=== PATIENT | female | born 1945 ===

== ENCOUNTER 2016-12-24 23:11 | Emergency (ER) | payer OTHER ==
[2016-12-24 23:11] VITALS: BMI 22.2
[2016-12-24 23:26] VITALS: TEMP 98.3; O2SAT 99
--- NOTE | 2016-12-24 23:40 | ED PDOC ---
HPI: Trauma/Fall - HPI Time Seen by Provider: 12/24/16 23:30 Chief Complaint (Nursing): Trauma Chief Complaint (Provider): fall History Per: Patient, Family History/Exam Limitations: no limitations Injury Occurred (Timing): Just Before Arrival Additional History Per: Patient, Family (friend) Additional Complaint(s): 71 y/o female brought in by EMS with friend for eval of fall prior to arrival. Patient states she was leaving [employer] and slipped on the wet side walk and fell on to knees, then face forward on to ground. As per friend, denies LOC. Patient with complaints of posterior headache, neck pain, left leg pain, and bruises/pain to both knees (L>R). Denies dizziness, nausea/vomiting, vision changes, extremity numbness/weakness, chest pain, shortness of breath, back pain , bowel/bladder incontinence. Past Medical History Reviewed: Historical Data, Nursing Documentation, Vital Signs Vital Signs: Last Vital Signs Temp 98.3 F 12/24/16 23:17 Pulse 100 H 12/24/16 23:17 Resp 18 12/24/16 23:17 BP 154/85 H 12/24/16 23:17 Pulse Ox 99 12/24/16 23:17 - Medical History PMH: Alzheimer's Disease, Depression, Gastritis, HTN Denies: Diabetes, Hepatitis, HIV, Seizures, Sexually Transmitted Disease - Family History Family History: States: Unknown Family Hx - Immunization History Hx Tetanus Toxoid Vaccination: Yes Hx Influenza Vaccination: Yes Hx Pneumococcal Vaccination: Yes - Home Medications Home Medications: Ambulatory Orders Medication Instructions Recorded Aspirin 325 mg PO DAILY 10/25/13 Omeprazole 40 mg PO DAILY 01/19/14 Tramadol Hydrochloride [Tramadol] 1 tab PO TID PRN #20 tab 01/19/14 Fenofibrate Nanocrystallized 145 mg PO DAILY 03/01/14 [Fenofibrate] Docusate Sodium [Dulcolax Stool 100 mg PO DAILY #10 capsule 06/04/16 Softener] Phosphate Enema [Fleet Enema 135 133 ml RC ONCE #1 nma 06/04/16 Ml] Famotidine [Pepcid] 20 mg PO BID #16 tab 10/11/16 - Allergies Allergies/Adverse Reactions: Allergies Allergy/AdvReac Type Severity Reaction Status Date / Time Penicillins Allergy Verified 06/03/16 22:06 Review of Systems ROS Statement: Except As Marked, All Systems Reviewed And Found Negative Musculoskeletal: Positive for: Neck Pain, Leg Pain Neurological: Positive for: Headache Physical Exam - Reviewed Nursing Documentation Reviewed: Yes Vital Signs Reviewed: Yes - Physical Exam Appears: Positive for: Well, Non-toxic, No Acute Distress Head Exam: Positive for: NORMAL INSPECTION, NORMOCEPHALIC. Negative for: ATRAUMATIC (left frontal abrasions) Eye Exam: Positive for: Normal appearance, EOMI, PERRL ENT: Positive for: Normal ENT Inspection, Other (abrasion to nasal bridge) Cardiovascular/Chest: Positive for: Regular Rate, Rhythm Respiratory: Positive for: Normal Breath Sounds Back: Positive for: Vertebral Tenderness (diffuse cspine; no bony deformity), Muscle Spasm (b/l cspine paraspinals). Negative for: L CVA Tenderness, R CVA Tenderness, Decreased ROM Extremity: Positive for: Normal ROM, Tenderness (left hip, left lateral thigh. No leg shortening, rotation noted. Contusions/abrasions b/l knee's, FROM.), Capillary Refill. Negative for: Calf Tenderness, Deformity Neurologic/Psych: Positive for: Alert, Oriented - ECG O2 Sat by Pulse Oximetry: 99 - Other Rad xray left hip/pelvis X-Ray: Interpreted by Me, Viewed By Me X-Ray Interpretation: no acute findings xray left femur X-Ray: Interpreted by Me, Viewed By Me X-Ray Interpretation: no acute findings xray b/l knees X-Ray: Interpreted by Me, Viewed By Me X-Ray Interpretation: no acute findings - Progress ED Course And Treament: Ct head, CT facial, CT cspine, xray left hip, xray left femur, xray b/l knees, Tylenol PO EXAM: CT Head Without Intravenous Contrast CLINICAL HISTORY: 71 years old, female; Injury or trauma; Fall; Initial encounter; Blunt trauma ( contusions or hematomas); Additional info: Fall, head injury TECHNIQUE: Axial computed tomography images of the head/brain without intravenous contrast. This CT exam was performed using one or more of the following dose reduction techniques: automated exposure control, adjustment of the mA and/or kV according to patient size, and/or use of iterative reconstruction technique. Coronal and sagittal reformatted images were created and reviewed. COMPARISON: CT HEAD OR BRAIN W/O CONT 01/20/2014 8:21:06 PM FINDINGS: Brain: Mild atrophy. No intracranial hemorrhage. No mass. 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 No edema. Ventricles: No hydrocephalus. Bones/joints: No acute fracture. Soft tissues: LEFT frontal soft tissue swelling. Vasculature: Mild atherosclerotic disease of intracranial arteries. Sinuses: No acute sinusitis. Mastoid air cells: No mastoid effusion. Orbits: Unremarkable as visualized. IMPRESSION: 1. No intracranial hemorrhage. 2. Incidental/non-acute findings are described above EXAM: CT Cervical Spine Without Intravenous Contrast CLINICAL HISTORY: 71 years old, female; Injury or trauma; Fall; Initial encounter; Blunt trauma TECHNIQUE: Axial computed tomography images of the cervical spine without intravenous contrast. This CT exam was performed using one or more of the following dose reduction techniques : automated exposure control, adjustment of the mA and/or kV according to patient size, and/ or use of iterative reconstruction technique. Coronal and sagittal reformatted images were created and reviewed. COMPARISON: No relevant prior studies available. FINDINGS: Vertebrae: No acute fracture. Facet osteoarthrosis within cervical spine. Discs/spinal canal/neural foramina: Early to mild degenerative disc disease within mid and lower cervical spine. Disc herniations within mid to lower cervical spine, suboptimally evaluated. Mild indentation thecal sac mid and lower cervical spine. Soft tissues: Unremarkable. Vasculature: Mild atherosclerotic disease. Lung apices: Unremarkable as visualized. IMPRESSION: 1. No fracture. 2. Incidental/non-acute findings are described above. EXAM: CT Maxillofacial Without Intravenous Contrast CLINICAL HISTORY: 71 years old, female; Injury or trauma; Fall; Initial encounter; Blunt trauma ( contusions or hematomas); Forehead TECHNIQUE: Axial computed tomography images of the face without intravenous contrast. This CT exam was performed using one or more of the following dose reduction techniques: automated exposure control, adjustment of the mA and/or kV according to patient size, and/or use of iterative reconstruction technique. Coronal and sagittal reformatted images were created and reviewed. COMPARISON: CT HEAD OR BRAIN W/O CONT 01/20/2014 8:21:06 PM FINDINGS: Bones/joints: No acute fracture. Soft tissues: Unremarkable. Orbits: Unremarkable as visualized. Sinuses: Scattered minimal mucosal thickening. No air-fluid levels. IMPRESSION: 1. No fracture. 2. Incidental/non-acute findings are described above. Abrasions cleaned with NS, bacitracin applied. Patient educated on findings, states she has Tylenol and Advil at home she can take as needed for pain. Advised follow up PMD 2-3 days. Return to ED for worsening/concerning symptoms. Disposition - Clinical Impression Clinical Impression: Facial abrasion, Contusion, knee, Head injury, Cervical muscle strain, Muscle strain of left thigh - Patient ED Disposition Is Patient to be Admitted: No Counseled Patient/Family Regarding: Studies Performed, Diagnosis, Need For Followup - Disposition Disposition: Routine/Home Disposition Time: 01:24 Condition: IMPROVED Instructions: Cervical Strain (DC), Muscle Strain (ED), Head Injury (ED), Contusion in Adults (ED), Abrasion (ED) Print Language: [place] KORE[place]
--- NOTE | 2016-12-25 00:20 | CT ---
EXAM: CT Head Without Intravenous Contrast CLINICAL HISTORY: 71 years old, female; Injury or trauma; Fall; Initial encounter; Blunt trauma (contusions or hematomas); Additional info: Fall, head injury TECHNIQUE: Axial computed tomography images of the head/brain without intravenous contrast. This CT exam was performed using one or more of the following dose reduction techniques: automated exposure control, adjustment of the mA and/or kV according to patient size, and/or use of iterative reconstruction technique. Coronal and sagittal reformatted images were created and reviewed. COMPARISON: CT HEAD OR BRAIN W/O CONT 01/20/2014 8:21:06 PM FINDINGS: Brain: Mild atrophy. No intracranial hemorrhage. No mass. 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 No edema. Ventricles: No hydrocephalus. Bones/joints: No acute fracture. Soft tissues: LEFT frontal soft tissue swelling. Vasculature: Mild atherosclerotic disease of intracranial arteries. Sinuses: No acute sinusitis. Mastoid air cells: No mastoid effusion. Orbits: Unremarkable as visualized. IMPRESSION: 1. No intracranial hemorrhage. 2. Incidental/non-acute findings are described above.
--- NOTE | 2016-12-25 00:32 | CT ---
EXAM: CT Cervical Spine Without Intravenous Contrast CLINICAL HISTORY: 71 years old, female; Injury or trauma; Fall; Initial encounter; Blunt trauma TECHNIQUE: Axial computed tomography images of the cervical spine without intravenous contrast. This CT exam was performed using one or more of the following dose reduction techniques: automated exposure control, adjustment of the mA and/or kV according to patient size, and/or use of iterative reconstruction technique. Coronal and sagittal reformatted images were created and reviewed. COMPARISON: No relevant prior studies available. FINDINGS: Vertebrae: No acute fracture. Facet osteoarthrosis within cervical spine. Discs/spinal canal/neural foramina: Early to mild degenerative disc disease within mid and lower cervical spine. Disc herniations within mid to lower cervical spine, suboptimally evaluated. Mild indentation thecal sac mid and lower cervical spine. Soft tissues: Unremarkable. Vasculature: Mild atherosclerotic disease. Lung apices: Unremarkable as visualized. IMPRESSION: 1. No fracture. 2. Incidental/non-acute findings are described above.
--- NOTE | 2016-12-25 00:34 | CT ---
EXAM: CT Maxillofacial Without Intravenous Contrast CLINICAL HISTORY: 71 years old, female; Injury or trauma; Fall; Initial encounter; Blunt trauma (contusions or hematomas); Forehead TECHNIQUE: Axial computed tomography images of the face without intravenous contrast. This CT exam was performed using one or more of the following dose reduction techniques: automated exposure control, adjustment of the mA and/or kV according to patient size, and/or use of iterative reconstruction technique. Coronal and sagittal reformatted images were created and reviewed. COMPARISON: CT HEAD OR BRAIN W/O CONT 01/20/2014 8:21:06 PM FINDINGS: Bones/joints: No acute fracture. Soft tissues: Unremarkable. Orbits: Unremarkable as visualized. Sinuses: Scattered minimal mucosal thickening. No air-fluid levels. IMPRESSION: 1. No fracture. 2. Incidental/non-acute findings are described above.
[2016-12-25 01:15] VITALS: BP 139/70; PULSE 81; RESP 16
--- NOTE | 2016-12-25 11:46 | RAD ---
PROCEDURE: Bilateral Knee Radiographs. HISTORY: fall COMPARISON: None. FINDINGS: BONES: Right Knee: Normal. No fracture. Left Knee: Normal. No fracture. JOINTS: Right Knee: Normal. No osteoarthritis. Left knee: Normal. No osteoarthritis. SOFT TISSUES: Right Knee: Normal. Left Knee: Normal. JOINT EFFUSION: Right Knee: None. Left Knee: None. OTHER FINDINGS: None. IMPRESSION: Normal radiographs of the knees.
--- NOTE | 2016-12-25 11:47 | RAD ---
PROCEDURE: Left Hip X-ray Radiographs. HISTORY: fall COMPARISON: None. FINDINGS: BONES: Normal. No fracture. JOINTS: Normal. SOFT TISSUES: Normal. OTHER FINDINGS: None. IMPRESSION: Normal left hip radiographs.
--- NOTE | 2016-12-25 11:47 | RAD ---
PROCEDURE: Left Femur Radiographs. HISTORY: fall COMPARISON: None. TECHNIQUE: AP and Lateral Radiographs of the left femur. FINDINGS: FEMUR: Normal. No fracture. SOFT TISSUES: Normal. OTHER FINDINGS: None. IMPRESSION: Unremarkable radiographs of the left femur.
== END 2016-12-25 01:47 | disposition home or self-care (01) ==
LOC: H.ER 23:11
DX: S00.81XA Abrasion of other part of head, initial encounter (principal); S16.1XXA Strain of muscle, fascia and tendon at neck level, initial encounter; S76.912A Strain of unspecified muscles, fascia and tendons at thigh level, left thigh, initial encounter; S80.02XA Contusion of left knee, initial encounter; S80.01XA Contusion of right knee, initial encounter; W01.0XXA Fall on same level from slipping, tripping and stumbling without subsequent striking against object, initial encounter; Y92.480 Sidewalk as the place of occurrence of the external cause

== ENCOUNTER 2017-03-26 09:30 | Emergency (ER) | payer OTHER ==
[2017-03-26 09:36] VITALS: O2SAT 98
[2017-03-26 09:37] VITALS: BMI 25.3
--- NOTE | 2017-03-26 10:51 | ED PDOC ---
Lower Extremity Pain/Injury Time Seen by Provider: 03/26/17 10:00 Chief Complaint (Nursing): Lower Extremity Problem/Injury Chief Complaint (Provider): right leg pain History Per: Patient History/Exam Limitations: no limitations Additional Complaint(s): Annette Bearden is a 71 year old female, with a previous medical history of Alzheimer's disease, presents to the ED with complaints of right leg pain ongoing for 3 months secondary to sustaining a fall. Patient denies any shortness of breath, calf pain, numbness or tingling. PMD: none provided Past Medical History Reviewed: Historical Data, Nursing Documentation, Vital Signs Vital Signs: Last Vital Signs Temp 97 F L 03/26/17 09:35 Pulse 80 03/26/17 09:35 Resp BP 161/92 H 03/26/17 09:35 Pulse Ox 98 03/26/17 09:35 - Medical History PMH: Alzheimer's Disease, Depression, Gastritis, HTN Denies: Diabetes, Hepatitis, HIV, Seizures, Sexually Transmitted Disease - Family History Family History: States: Unknown Family Hx - Immunization History Hx Tetanus Toxoid Vaccination: Yes Hx Influenza Vaccination: Yes Hx Pneumococcal Vaccination: Yes - Home Medications Home Medications: Ambulatory Orders Medication Instructions Recorded Aspirin 325 mg PO DAILY 10/25/13 Omeprazole 40 mg PO DAILY 01/19/14 Tramadol Hydrochloride [Tramadol] 1 tab PO TID PRN #20 tab 01/19/14 Fenofibrate Nanocrystallized 145 mg PO DAILY 03/01/14 [Fenofibrate] Docusate Sodium [Dulcolax Stool 100 mg PO DAILY #10 capsule 06/04/16 Softener] Phosphate Enema [Fleet Enema 135 133 ml RC ONCE #1 nma 06/04/16 Ml] Famotidine [Pepcid] 20 mg PO BID #16 tab 10/11/16 Acetaminophen [Tylenol 325mg tab] 650 mg PO Q6H PRN #50 tab 03/26/17 - Allergies Allergies/Adverse Reactions: Allergies Allergy/AdvReac Type Severity Reaction Status Date / Time Penicillins Allergy Verified 06/03/16 22:06 Review of Systems ROS Statement: Except As Marked, All Systems Reviewed And Found Negative Musculoskeletal: Positive for: Leg Pain (right) Physical Exam - Reviewed Nursing Documentation Reviewed: Yes Vital Signs Reviewed: Yes - Physical Exam Appears: Positive for: Well, Non-toxic, No Acute Distress Head Exam: Positive for: ATRAUMATIC, NORMAL INSPECTION, NORMOCEPHALIC Skin: Positive for: Normal Color, Warm, Dry Eye Exam: Positive for: Normal appearance ENT: Positive for: Normal ENT Inspection Neck: Positive for: Normal Cardiovascular/Chest: Positive for: Regular Rate, Rhythm Respiratory: Positive for: Normal Breath Sounds Pulses-Dorsalis Pedis (L): 1+ Pulses-Dorsalis Pedis (R): 1+ Gastrointestinal/Abdominal: Positive for: Normal Exam, Bowel Sounds, Soft. Negative for: Tenderness Back: Positive for: Normal Inspection Extremity: Positive for: Normal ROM. Negative for: Tenderness, Pedal Edema, Calf Tenderness, Deformity, Swelling Neurologic/Psych: Positive for: Alert, Oriented - ECG O2 Sat by Pulse Oximetry: 98 (RA) Pulse Ox Interpretation: Normal Medical Decision Making Medical Decision Making: Initial Impression:Right lower extremity pain with a history of fall Initial Plan: * x-ray tibia fibula * x-ray right knee * reevaluation Scribe Attestation: Documented by Kristen Vail, acting as a scribe for Denise Cutler MD. Provider Scribe Attestation: All medical record entries made by the Scribe were at my direction and personally dictated by me. I have reviewed the chart and agree that the record accurately reflects my personal performance of the history, physical exam, medical decision making, and the department course for this patient. I have also personally directed, reviewed, and agree with the discharge instructions and disposition. Disposition - Clinical Impression Clinical Impression: Knee contusion, Contusion of leg - Patient ED Disposition Is Patient to be Admitted: No Doctor Will See Patient In The: Office - Disposition Referrals: Cinthia Wilkins MD [Staff Provider] - Disposition: Routine/Home Disposition Time: 12:45 Condition: STABLE Prescriptions: Acetaminophen [Tylenol 325mg tab] 650 mg PO Q6H PRN #50 tab PRN Reason: Pain, Mild (1-3) Instructions: Knee Pain (ED) Forms: [facility] (Tajik) Print Language: MALDIVIAN
--- NOTE | 2017-03-26 12:07 | RAD ---
PROCEDURE: Right Knee Radiographs. HISTORY: fall 3 weeks ago COMPARISON: Comparison made with concurrent right tibia fibula FINDINGS: BONES: No evidence of acute displaced fracture nor dislocation. The osseous structures intact. JOINTS: Joint spaces are preserved. Small marginal osteophyte formation seen arising from the medial tibial plateau. JOINT EFFUSION: Suspect small suprapatellar joint effusion OTHER FINDINGS: None. IMPRESSION: No acute fractures. Suspect small suprapatellar joint effusion.
--- NOTE | 2017-03-26 12:14 | RAD ---
PROCEDURE: Radiographs of the right tibia and fibula. HISTORY: fall 3 weeks ago COMPARISON: Comparison made with concurrent radiographs right knee TECHNIQUE: Frontal and lateral views obtained. FINDINGS: BONES: No fracture or destructive lesion. JOINT SPACES: Joint spaces are preserved. OTHER FINDINGS: None. IMPRESSION: No evidence of acute displaced fracture nor dislocation.
[2017-03-26 13:18] VITALS: BP 132/65; PULSE 78; RESP 16; TEMP 97.9
== END 2017-03-26 13:17 | disposition home or self-care (01) ==
LOC: H.ER 09:30
DX: M79.604 Pain in right leg (principal); F02.80 Dementia in other diseases classified elsewhere, unspecified severity, without behavioral disturbance, psychotic disturbance, mood disturbance, and anxiety; G30.9 Alzheimer's disease, unspecified; I10 Essential (primary) hypertension; Z79.82 Long term (current) use of aspirin; Z88.0 Allergy status to penicillin

== ENCOUNTER 2017-05-15 09:59 | Emergency (ER) | payer MEDICAID, OTHER ==
[2017-05-15 10:06] VITALS: RESP 16; TEMP 96.7
[2017-05-15 10:07] VITALS: BMI 24.2
--- NOTE | 2017-05-15 11:05 | ED PDOC ---
Lower Extremity Pain/Injury Time Seen by Provider: 05/15/17 10:52 Chief Complaint (Nursing): Lower Extremity Problem/Injury Chief Complaint (Provider): right leg pain History Per: Patient History/Exam Limitations: no limitations Current Symptoms Are (Timing): Still Present Additional Complaint(s): 71yo F in ED with hx of HTN takes lisinopril daily once states that her right leg with painful, unable to range without acute trauma. admits to hx of similar and was seen in ER for similar in March 2017 had negative xray of tibia/fibula with fluids noted to knee. admits she fell two prior to March ER visit.admits to arthritis. denies SOB, CP, recent flights, hormonal replacements recent surgeries. - Risk Factors DVT Risk Factors: Pos: None Past Medical History Reviewed: Historical Data, Nursing Documentation, Vital Signs Vital Signs: Last Vital Signs Temp 96.7 F L 05/15/17 10:04 Pulse 78 05/15/17 10:04 Resp 16 05/15/17 10:04 BP 207/102 H 05/15/17 10:11 Pulse Ox 98 05/15/17 10:04 - Medical History PMH: Alzheimer's Disease, Depression, Gastritis, HTN Denies: Diabetes, Hepatitis, HIV, Seizures, Sexually Transmitted Disease - Family History Family History: States: Unknown Family Hx - Immunization History Hx Tetanus Toxoid Vaccination: Yes Hx Influenza Vaccination: Yes Hx Pneumococcal Vaccination: Yes - Home Medications Home Medications: Ambulatory Orders Medication Instructions Recorded Aspirin 325 mg PO DAILY 10/25/13 Omeprazole 40 mg PO DAILY 01/19/14 Tramadol Hydrochloride [Tramadol] 1 tab PO TID PRN #20 tab 01/19/14 Fenofibrate Nanocrystallized 145 mg PO DAILY 03/01/14 [Fenofibrate] Docusate Sodium [Dulcolax Stool 100 mg PO DAILY #10 capsule 06/04/16 Softener] Phosphate Enema [Fleet Enema 135 133 ml RC ONCE #1 nma 06/04/16 Ml] Famotidine [Pepcid] 20 mg PO BID #16 tab 10/11/16 Acetaminophen [Tylenol 325mg tab] 650 mg PO Q6H PRN #50 tab 03/26/17 Naproxen 500 mg PO BID #30 tab 05/15/17 - Allergies Allergies/Adverse Reactions: Allergies Allergy/AdvReac Type Severity Reaction Status Date / Time Penicillins Allergy Mild RASH Verified 05/15/17 10:11 Wells Criteria for PE - Wells Criteria for Pulmonary Embolism Clinical Signs and Symptoms of DVT: Yes P.E is #1 Diagnosis, or Equally Likely: No Heart Rate >100: No Immobilization at least 3 days;Surgery previous 4 weeks: No Previous, objectively diagnosed PE or DVT: No Hemoptysis: No Malignancy w/treatment within 6 months, or palliative: No Total Score: 3 Review of Systems ROS Statement: Except As Marked, All Systems Reviewed And Found Negative Constitutional: Negative for: Fever, Chills Respiratory: Negative for: Cough, Shortness of Breath, Hemoptysis, SOB with Exertion, Sputum Gastrointestinal: Negative for: Nausea, Vomiting, Abdominal Pain Musculoskeletal: Positive for: Leg Pain. Negative for: Back Pain Physical Exam - Reviewed Nursing Documentation Reviewed: Yes Vital Signs Reviewed: Yes - Physical Exam Appears: Positive for: Non-toxic, No Acute Distress, Uncomfortable Skin: Positive for: Normal Color, Warm, DRY Cardiovascular/Chest: Positive for: Regular Rate, Rhythm Respiratory: Positive for: CNT, Normal Breath Sounds Back: Positive for: Normal Inspection Extremity: Positive for: Normal ROM, Other (calf tenderness to right. none noted on left. pedial pulses noted groin pulses noted. dec rOM to knee and hip due t pain. no skin changes noted no signficant swelling noted. ) Neurologic/Psych: Positive for: Alert, Oriented - ECG O2 Sat by Pulse Oximetry: 98 - Progress ED Course And Treament: will do US to r/o DVT Tylenol now for pain. Medical Decision Making Medical Decision Making: US: negative for DVT, noted is a cyst. PT will need evaluation with orthopedics surgeon for cyst drainage if with sever pain. pt given torodol for pain in ED and d/c on naproxen for severe pain, warm compress and rest otherwise. Disposition - Clinical Impression Clinical Impression: Popliteal cyst - Patient ED Disposition Is Patient to be Admitted: No Counseled Patient/Family Regarding: Studies Performed, Diagnosis, Need For Followup, Rx Given - Disposition Referrals: [facility] [Outside] [facility] [Outside] [facility] [Outside] Disposition: Routine/Home Disposition Time: 11:44 Condition: STABLE Prescriptions: Naproxen 500 mg PO BID #30 tab Instructions: Easley's Cyst (ED) Print Language: [place]OH[place]
--- NOTE | 2017-05-15 12:34 | US ---
PROCEDURE: Right lower extremity venous duplex Doppler. HISTORY: calf pain COMPARISON: None available. TECHNIQUE: Common femoral, superficial femoral, popliteal and posterior tibial veins were evaluated. Flow was assessed with color Doppler, compressibility, assessment of phasic flow and augmentation response. FINDINGS: COMMON FEMORAL VEIN: Unremarkable. SUPERFICIAL FEMORAL VEIN: Unremarkable. POPLITEAL VEIN: Unremarkable. POSTERIOR TIBIAL VEIN: Unremarkable. OTHER FINDINGS: There is a complex popliteal cyst with curvilinear internal echoes, possibly septation, measuring 1.1 x 1.4 x 0.9 cm. IMPRESSION: No evidence of deep venous thrombosis in the right lower extremity. Complex 1.4 cm right popliteal cyst noted.
[2017-05-15 12:35] LABS: BASO # 0.1 K/uL (0.0-0.2); BASO % 1.1 % (0.0-2.0); EOS # 0.2 K/uL (0.0-0.7); EOS % 3.2 % (0.0-4.0); HEMATOCRIT 42.6 % (34.0-47.0); LYMPH # 1.4 K/uL (1.0-4.3); LYMPH % 26.6 % (20.0-40.0); MEAN CELL VOLUME 92.3 fl (81.0-99.0); MEAN CORPUSCULAR HEMOGLOBIN 30.4 pg (27.0-31.0); MEAN CORPUSCULAR HGB CONC 32.9 g/dL (33.0-37.0); MEAN PLATELET VOLUME 9.3 fl (7.2-11.7); MONO # 0.5 K/uL (0.0-0.8); MONO % 9.8 % (0.0-10.0); NEUT % 59.3 % (50.0-75.0); RED CELL DISTRIBUTION WIDTH 15.3 % (11.5-14.5); WHITE BLOOD COUNT 5.1 K/uL (4.8-10.8)
[2017-05-15 12:49] LABS: ALB/GLOB RATIO 1.4 (1.0-2.1); ALKALINE PHOSPHATASE 108 U/L (38-126); ALT/SGPT 29 U/L (9-52); AST/SGOT 28 U/L (14-36); BILIRUBIN,TOTAL 0.5 mg/dl (0.2-1.3); BLOOD UREA NITROGEN 15 mg/dl (7-17); CALCIUM 9.7 mg/dL (8.4-10.2); CARBON DIOXIDE 31 mmol/L (22-30); CHLORIDE 101 mmol/L (98-107); GFR AFRICAN-AMERICAN > 60; GLUCOSE,RANDOM 93 mg/dL (65-105); POTASSIUM 4.4 MMOL/L (3.6-5.0); SODIUM 142 mmol/l (132-148); TOTAL PROTEIN 7.8 G/DL (6.3-8.2)
[2017-05-15 13:19] LABS: PARTIAL THROMBOPLASTIN TIME 29.4 Seconds (25.6-37.1)
[2017-05-15 14:34] VITALS: BP 141/82; PULSE 85; O2SAT 100
== END 2017-05-15 12:39 | disposition home or self-care (01) ==
LOC: H.ER 09:59
DX: M71.21 Synovial cyst of popliteal space [Baker], right knee (principal); F02.80 Dementia in other diseases classified elsewhere, unspecified severity, without behavioral disturbance, psychotic disturbance, mood disturbance, and anxiety; F32.9 Major depressive disorder, single episode, unspecified; G30.9 Alzheimer's disease, unspecified; I10 Essential (primary) hypertension; Z79.82 Long term (current) use of aspirin; Z88.0 Allergy status to penicillin
CPT/HCPCS: 80053; 85025; 85610; 85730; 93971; 96372; 99284; J1885